=== PATIENT | female | born 1940 | race Caucasian/White ===

== ENCOUNTER 2016-07-01 13:33 | Inpatient (IN) | payer MEDICARE, BC ==
[2016-07-01 15:10] VITALS: BMI 14.8
--- NOTE | 2016-07-01 15:51 | CT ---
EXAMINATION TYPE: CT brain wo con DATE OF EXAM: 07/01/2016 3:44 PM HISTORY: Increased confusion. CT DLP: 1058.4 mGycm. Automated Exposure Control for Dose Reduction was Utilized. TECHNIQUE: CT scan of the head is performed without contrast. COMPARISON: None. FINDINGS: There is no acute intracranial hemorrhage or midline shift identified. There is diffuse v entricular and sulcal prominence consistent with diffuse age-related cerebral atrophy. There is low- attenuation in the periventricular white matter consistent with chronic small vessel ischemic change. Old lacunar infarct left basal ganglia suspected near axial image 25. The globes are intact and the visualized sinuses are clear. Patchy soft tissue density bilateral external auditory canals likely reflects cerumen. IMPRESSION: No acute intracranial hemorrhage or midline shift. There is moderate diffuse age-relate d cerebral atrophy and chronic small vessel ischemic change noted.
[2016-07-01 15:52] LABS: Anisocytosis Slight; Basophils % (A) 0 %; CH 30.9; CHCM 31.2; Eosinophils % (A) 1 %; HCT 43.5 % (34.0-46.0); HDW 3.12; HGB 13.3 gm/dL (11.4-16.0); Hypochromasia Moderate; Luc # (Auto) 0.04; Luc % (Auto) 1; Lymphocytes # (A) 0.4 k/uL (1.0-4.8); Lymphocytes % (A) 9 %; MCH 30.5 pg (25.0-35.0); MCHC 30.6 g/dL (31.0-37.0); Macrocytosis Slight; Mean Platelet Volume 8.2; Monocytes # (A) 0.1 k/uL (0-1.0); Monocytes % (A) 3 %; Neutrophils # (A) 3.6 k/uL (1.3-7.7); Neutrophils % (A) 86 %; RBC 4.35 m/uL (3.80-5.40); RDW 16.7 % (11.5-15.5); WBC 4.2 k/uL (3.8-10.6)
--- NOTE | 2016-07-01 16:01 | XR ---
EXAMINATION TYPE: XR chest 2V DATE OF EXAM: 07/01/2016 3:57 PM COMPARISON: NONE HISTORY: Shortness of breath and cough TECHNIQUE: Frontal and lateral views of the chest are obtained. FINDINGS: There is elevated left hemidiaphragm with left basilar opacity silhouetting portions of le ft heart border and hemidiaphragm worrisome for infiltrate and/or atelectasis. Right lung is clear. N o pneumothorax is seen bilaterally. No large pleural effusions are identified. The cardiac silhouette size is enlarged with atherosclerotic thoracic aorta. The osseous structures are demineralized. IMPRESSION: Cardiomegaly with suspicious left basilar infiltrate.
[2016-07-01] MEDS: SODIUM CHLORIDE 0.9% 1,000 ML IV SCH (16:03)
[2016-07-01 16:10] LABS: Calcium 9.3 mg/dL (8.4-10.2); Potassium 5.1 mmol/L (3.5-5.1); Total Bilirubin 1.2 mg/dL (0.2-1.3); Total Protein 6.1 g/dL (6.3-8.2)
[2016-07-01 16:28] LABS: Appearance,Urine Clear (Clear); Bilirubin,Urine Negative (Negative); Glucose,Urine (UA) 4+ (Negative); Ketones,Urine Negative (Negative); Leukocyte Esterase,Urine Negative (Negative); Mucus,Urine Rare /hpf; Nitrite,Urine Negative (Negative); PH, Urine 5.5 (5.0-8.0); Particle Count 568; Protein,Urine 2+ (Negative); RBC,Urine 2 /hpf (0-5); Specific Gravity,Urine 1.006 (1.001-1.035); Squamous Epithelial Cell,Urine 2 /hpf (0-4); UA Billing (MACRO vs. MICRO) MICRO; Urobilinogen,Urine <2.0 mg/dL (<2.0); WBC,Urine 3 /hpf (0-5)
[2016-07-01] MEDS: CARVEDILOL 6.25 MG TAB PO SCH (17:45)
[2016-07-01] MEDS: INSULIN LISPRO (humaLOG) 300 UNIT/3 ML VIAL SQ SCH ×2 (17:45→21:54)
[2016-07-01 17:50] LABS: Glucose,Whole Blood 536 mg/dL (75-99)
[2016-07-01 17:50] LABS: Glucose,Whole Blood >600 mg/dL (75-99)
[2016-07-01 18:46] LABS: Hemoglobin A1C 9.8 % (4.2-6.1)
[2016-07-01 21:12] LABS: Glucose,Whole Blood 379 mg/dL (75-99)
[2016-07-01] MEDS: GABAPENTIN 100 MG CAP PO SCH (21:32)
[2016-07-01] MEDS: MIRTAZAPINE 15 MG TAB PO SCH (21:32)
[2016-07-01] MEDS: FAMOTIDINE 20 MG TAB PO SCH (21:32)
[2016-07-01] MEDS: INSULIN DETEMIR 100 UNIT/ML 10 ML VIAL SQ SCH (21:56)
[2016-07-02] MEDS: LEVOTHYROXINE 25 MCG TAB PO SCH (06:45)
[2016-07-02] MEDS: SODIUM CHLORIDE 0.9% 1,000 ML IV SCH ×2 (06:47→14:50)
[2016-07-02 07:00] LABS: Glucose,Whole Blood 115 mg/dL (75-99)
--- NOTE | 2016-07-02 08:20 | HP ---
DATE OF ADMISSION: DATE OF SERVICE: 07/01/2016 CHIEF COMPLAINT: A 75-year-old white female admitted for acute altered mental status and pneumonia, cough, congestion, shortness of breath and altered mental status and possibly UTI, worsening renal insufficiency. HISTORY OF PRESENT ILLNESS: This is a 75-year-old white female who came to the hospital for severely elevated hyperglycemia with altered mental status, admitted to rule out TIA or CVA. She was found to have pneumonia and started on IV antibiotics, Rocephin, awaiting Infectious Disease and Neurologic consult. She has worsening renal insufficiency and diabetes mellitus. I started her on Levemir 10 units subQ insulin today on admission. HOME MEDICATIONS: 1. Prednisone 10 mg a day for chronic dermatitis. 2. Potassium chloride 10 mEq daily. 3. Remeron 30 daily. 4. Zestril 2.5 daily. 5. Synthroid 25 daily. 6. Neurontin 100 b.i.d. 7. Lasix 40 daily. 8. Pepcid 20 daily. 9. Coreg 6.25 b.i.d. REVIEW OF SYSTEMS: A 14-point review of systems negative except for as mentioned in HPI. Temperature is 97, pulse is 60s to 70s, respiration 16 to 19, blood pressure 99 to 126/60s to 70s. 02 is 94% to 99% on room air. CARDIOVASCULAR: S1, S2. LUNGS: ( ) HEMATOLOGIC: Negative Homans. PSYCH: Fair mood and affect. NEUROLOGIC: Alert and oriented x2. She looks weak and fatigued. She is thin and cachectic, a low BMI. Mild dermatitis with pustules on the right is clear. Brain CT shows no ischemic changes. Chest x-ray shows suspicious left basilar infiltrate, which is being treated for the pneumonia with Rocephin. Labs show a BUN of 51, creatinine 1.3, glucose of 559, she has been placed on Accu-Cheks protocol. Hemoglobin A1c is 9.8, Levemir has been given 10 units, today's glucose this morning is 115. CARDIOVASCULAR: S1, S2. LUNGS: Show scattered wheeze x4. ENDOCRINE: She is thin and cachectic. ASSESSMENT: 1. Generalized debility. 2. Right middle lobe pneumonia. 3. Hyperglycemia, uncontrolled diabetes mellitus. 4. Gastroesophageal reflux disease. 5. Chronic renal insufficiency. 6. Metabolic encephalopathy. 7. Possible urinary tract infection with sepsis. 8. Also Neurology and Infectious Disease consults are pending.
[2016-07-02] MEDS: INSULIN LISPRO (humaLOG) 300 UNIT/3 ML VIAL SQ SCH ×4 (08:30→21:39)
[2016-07-02] MEDS: CARVEDILOL 6.25 MG TAB PO SCH ×2 (08:30→18:06)
[2016-07-02] MEDS: LISINOPRIL 2.5 MG TAB PO SCH (08:31)
[2016-07-02] MEDS: POTASSIUM CHLORIDE ER 10 MEQ TAB.ER.PRT PO SCH (08:31)
[2016-07-02] MEDS: predniSONE 10 MG TAB PO SCH (08:31)
[2016-07-02] MEDS: FUROSEMIDE 40 MG TAB PO SCH (08:31)
[2016-07-02] MEDS: GABAPENTIN 100 MG CAP PO SCH ×2 (08:31→21:38)
[2016-07-02 09:39] LABS: Anisocytosis Slight; CH 31.1; CHCM 32.4; HDW 3.33; HGB 13.8 gm/dL (11.4-16.0); Hypochromasia Slight; MCH 31.7 pg (25.0-35.0); MCHC 32.7 g/dL (31.0-37.0); Macrocytosis Slight; Mean Platelet Volume 8.4; RBC 4.34 m/uL (3.80-5.40); WBC 7.2 k/uL (3.8-10.6); WBC (Perox) 7.35
[2016-07-02 09:55] LABS: ALT 33 U/L (9-52); AST 35 U/L (14-36); Alkaline Phosphatase 79 U/L (38-126); Anion Gap 10 mmol/L; Blood Urea Nitrogen 43 mg/dL (7-17); Calcium 8.8 mg/dL (8.4-10.2); Carbon Dioxide 21 mmol/L (22-30); Chloride 105 mmol/L (98-107); Glucose 116 mg/dL (74-99); Non-African American GFR(MDRD) 50 (>60 ml/min/1.73 sqM); Potassium 4.8 mmol/L (3.5-5.1); Sodium 136 mmol/L (137-145); Total Bilirubin 0.7 mg/dL (0.2-1.3); Total Protein 6.1 g/dL (6.3-8.2)
[2016-07-02 10:50] LABS: Add Differential Manual Differential
[2016-07-02 10:52] LABS: Nucleated Red Blood Cells 0 /100 WBC (0-0)
--- NOTE | 2016-07-02 10:52 | CDI ---
In responding to this query, please exercise your independent professional judgment. The [facility] Coding Staff and Clinical Documentation Specialists appreciate your assistance in clarifying documentation, maintaining compliance with coding guidelines, accurately documenting patients condition and capturing severity of illness. The fact that a question is asked does not imply that any particular answer is desired or expected. Communication forms are a method of clarifying documentation and are not made part of the Legal Health Record. Thank you in advance for your clarification. Last Revision, December 2014 Rl Ervin [address] [facility] [place] [address] Documentation Clarification Form Date: 07/02/2016 10:40:00 AM From: Teena Buchanan RN, CDS Admit Date: 07/01/2016 2:50:00 PM Patient Name: Shavonne Elliott Visit Number: [id number] Dr. Rodo Dumont, History/Risk Factors : 75 y/o admitted with general debility, Altered mental status and Pneumonia. Possible UTI History of Chronic renal insufficiency. Current BUN/CR/GFR: 51/1.30/40 and 43/1.07/50 Clinical Indicators : BUN/CR/GFR: 51/1.30/40 and 43/1.07/50, "worsening renal insufficiency" per H&P Treatment: NS@75, monitor labs, In order to capture the severity of condition, please clarify if the condition signifies: CKD Stage 1 (GFR > 90) CKD Stage 2 (GFR 60-89) CKD Stage 3 (GFR 30-59) CKD Stage 4 (GFR 15-29) CKD Stage 5 (GFR <15) ESRD Unable to determine Other condition, please specify Please document in your progress notes and discharge summary in order to capture severity of illness and risk of mortality. Include clinical findings that support your diagnosis. FYI: Press F11 to launch patient chart. Place X here if this finding has no clinical significance, is not applicable or if you are not able to provide any additional documentation. JUAN DAVIDD
[2016-07-02 10:54] LABS: Total Cells Counted 200
[2016-07-02 10:55] LABS: Polychromasia Present
[2016-07-02 12:19] LABS: Glucose,Whole Blood 140 mg/dL (75-99)
--- NOTE | 2016-07-02 12:20 | P.PN ---
Subjective Principal diagnosis: 75-year-old female seen and examined. 75-year-old female seen and examined. Patient was a direct admit from Dr. Jones's office the day before after patient is being seen in the office for mental status changes increased confusion different from baseline on admission the blood sugar was greater than 600 which was treated blood sugars were monitored throughout the night current blood sugar this morning 115 Levemir 10 units have been initiated CAT scan of the brain obtained on admission showed no acute intracranial hemorrhage. Moderate diffuse age-related cerebral atrophy and chronic small vessel ischemic changes noted chest x-ray suspicious for left basilar infiltrate Objective - Vital Signs Vital signs: Vital Signs Temp 96.5 F L 07/02/16 07:00 Pulse 69 07/02/16 07:00 Resp 18 07/02/16 07:00 BP 139/88 07/02/16 08:30 Pulse Ox 99 07/02/16 07:00 Intake & Output 07/01/16 07/02/16 07/02/16 18:59 06:59 18:59 Weight 38 kg Other: Voiding Method Diaper Incontinent # Voids 1 # Bowel Movements 0 - Exam Physical exam 75-year-old female pleasant cooperative oriented to self and place will follow simple commands Lungs essentially clear adequate air movement on room air sats are greater than 94% Heart S1-S2 audible and regular Abdomen soft nontender no nausea no vomiting not distended Extremities no edema moves all extremities appropriately - Labs CBC & Chem 7: 07/02/16 09:08 07/02/16 09:08 Labs: Abnormal Lab Results - Last 24 Hours (Table) 07/01/16 07/01/16 07/01/16 Range/Units 15:22 15:22 15:22 MCHC 30.6 L (31.0-37.0) g/dL RDW 16.7 H (11.5-15.5) % Plt Count 145 L (150-450) k/uL Lymphocytes # 0.4 L (1.0-4.8) k/uL Sodium 131 L (137-145) mmol/L Carbon Dioxide 21 L (22-30) mmol/L BUN 51 H (7-17) mg/dL Creatinine 1.30 H (0.52-1.04) mg/dL Glucose 559 H* (74-99) mg/dL POC Glucose (mg/dL) (75-99) mg/dL Hemoglobin A1c 9.8 H (4.2-6.1) % Total Protein 6.1 L (6.3-8.2) g/dL Albumin (3.5-5.0) g/dL Urine Protein (Negative) Urine Glucose (UA) (Negative) Hyaline Casts (0-2) /lpf Urine Mucus (None) /hpf 07/01/16 07/01/16 07/01/16 Range/Units 16:01 17:40 17:42 MCHC (31.0-37.0) g/dL RDW (11.5-15.5) % Plt Count (150-450) k/uL Lymphocytes # (1.0-4.8) k/uL Sodium (137-145) mmol/L Carbon Dioxide (22-30) mmol/L BUN (7-17) mg/dL Creatinine (0.52-1.04) mg/dL Glucose (74-99) mg/dL POC Glucose (mg/dL) >600 H 536 H (75-99) mg/dL Hemoglobin A1c (4.2-6.1) % Total Protein (6.3-8.2) g/dL Albumin (3.5-5.0) g/dL Urine Protein 2+ H (Negative) Urine Glucose (UA) 4+ H (Negative) Hyaline Casts 10 H (0-2) /lpf Urine Mucus Rare H (None) /hpf 07/01/16 07/02/16 07/02/16 Range/Units 21:10 06:40 09:08 MCHC (31.0-37.0) g/dL RDW 17.0 H (11.5-15.5) % Plt Count (150-450) k/uL Lymphocytes # (1.0-4.8) k/uL Sodium (137-145) mmol/L Carbon Dioxide (22-30) mmol/L BUN (7-17) mg/dL Creatinine (0.52-1.04) mg/dL Glucose (74-99) mg/dL POC Glucose (mg/dL) 379 H 115 H (75-99) mg/dL Hemoglobin A1c (4.2-6.1) % Total Protein (6.3-8.2) g/dL Albumin (3.5-5.0) g/dL Urine Protein (Negative) Urine Glucose (UA) (Negative) Hyaline Casts (0-2) /lpf Urine Mucus (None) /hpf 07/02/16 Range/Units 09:08 MCHC (31.0-37.0) g/dL RDW (11.5-15.5) % Plt Count (150-450) k/uL Lymphocytes # (1.0-4.8) k/uL Sodium 136 L (137-145) mmol/L Carbon Dioxide 21 L (22-30) mmol/L BUN 43 H (7-17) mg/dL Creatinine 1.07 H (0.52-1.04) mg/dL Glucose 116 H (74-99) mg/dL POC Glucose (mg/dL) (75-99) mg/dL Hemoglobin A1c (4.2-6.1) % Total Protein 6.1 L (6.3-8.2) g/dL Albumin 3.2 L (3.5-5.0) g/dL Urine Protein (Negative) Urine Glucose (UA) (Negative) Hyaline Casts (0-2) /lpf Urine Mucus (None) /hpf Microbiology - Last 24 Hours (Table) 07/01/16 16:01 Urine Culture - Preliminary Urine,Voided Assessment and Plan Plan: Impression Present on admission acute metabolic encephalopathy multifactorial suspect due to hyperglycemia with chest x-ray suggesting left lobe pneumonia Acute renal failure Chronic kidney disease stage 3 General debility chronic Hypertension Hypothyroid on supplements Type 2 diabetes uncontrolled hemoglobin A1c 9.5 newly diagnosed on no hypo- glycemic agents at home Hyperglycemic episodes Present on admission blood sugar greater than 600 Plan Continue IV Rocephin with Levaquin PT OT eval Monitor blood sugars address as indicated resume home meds as appropriate DVT and GI prophylaxis Follow-up on pending urine culture further recommendations pending The above dictated assessment and findings were discussed with dr jones Impression and the plan of care have been dictated as directed. Lorena George nurse practitioner acting as a scribe for dr jones.
[2016-07-02] MEDS ORDERED: LEVOFLOXACIN 500MG-D5W PMX 500 MG in DEXTROSE/WATER 1 100ML.BAG IVPB SCH (13:00)
--- NOTE | 2016-07-02 16:21 | P.CNNES ---
History of Present Illness Consult date: 07/02/16 Requesting physician: Rodo Dumont Reason for Consult: Altered mental status History of Present Illness: Patient is a pleasant 75-year-old female who is being seen by the neurology service on 07/02/2016 per the request of Dr. Rodo Dumont for altered mental status. Patient was a direct admit from Dr. Dumont's office for increased confusion. Upon admission, patient was found to have blood sugar of 559. Computed tomography scan of the brain showed no intracranial hemorrhage but it did show moderate diffuse age-related cerebral atrophy and chronic small vessel ischemic changes. Labs on admission included WBCs of 4.2, RBC 4.3, hemoglobin 13.3, hematocrit 43.5. Platelet count was 145, BUN was 51, creatinine 1.3, sodium 131, potassium 5.1. Hemoglobin A1c was 9.8. Urinalysis showed urine protein of 2+ and urine glucose 4+. Patient was afebrile with blood pressure 104/58. Patient was started on antibiotics and confusion is clearing according to staff. At the time of my evaluation, patient is resting comfortably in bed and appears to be in no acute distress. Review of Systems REVIEW OF SYSTEMS: Otherwise unremarkable and noncontributory. Past Medical History Past Medical History: Heart Failure, Diabetes Mellitus, Hyperlipidemia, Hypertension History of Any Multi-Drug Resistant Organisms: None Reported Past Surgical History: Appendectomy, Cholecystectomy Past Anesthesia/Blood Transfusion Reactions: No Reported Reaction Past Psychological History: Anxiety, Bipolar, Depression Smoking Status: Never smoker Medications and Allergies Home Medications Medication Instructions Recorded Confirmed Type Carvedilol [Coreg] 6.25 mg PO BID 07/01/16 07/01/16 History Famotidine [Pepcid] 20 mg PO DAILY 07/01/16 07/01/16 History Furosemide [Lasix] 40 mg PO DAILY 07/01/16 07/01/16 History Gabapentin [Neurontin] 100 mg PO BID 07/01/16 07/01/16 History Levothyroxine Sodium [Synthroid] 25 mcg PO DAILY 07/01/16 07/01/16 History Lisinopril [Zestril] 2.5 mg PO DAILY 07/01/16 07/01/16 History Mirtazapine [Remeron] 30 mg PO HS 05/18/17 05/18/17 History Potassium Chloride ER [K-Dur 10] 10 meq PO DAILY 07/01/16 07/01/16 History predniSONE 10 mg PO DAILY 07/01/16 07/01/16 History Allergies Allergy/AdvReac Type Severity Reaction Status Date / Time No Known Allergies Allergy Verified 07/01/16 15:35 Physical Examination - Vital Signs Vital Signs: Vital Signs Temp Pulse Resp BP Pulse Ox 07/02/16 15:00 98.2 F 75 20 141/66 97 07/02/16 08:30 139/88 07/02/16 07:00 96.5 F L 69 18 99/63 99 07/01/16 23:00 97.2 F L 75 16 104/58 98 Intake and Output 07/02/16 07/02/16 07/02/16 06:59 14:59 22:59 Intake Total 740 Balance 740 Intake: IV 100 Levofloxacin 500Mg-D5w 100 Pmx 500 mg In Dextrose/ Water 1 100ml.bag @ 100 mls/hr IVPB Q24H RUDDY Rx#: [id number] Intake, IV Titration 400 Amount Sodium Chloride 0.9% 1, 400 000 ml @ 50 mls/hr IV . Q20H RUDDY Rx#:[id number] Oral 240 Other: # Voids 1 3 # Bowel Movements 0 Weight 38 kg Patient Weight 07/03/16 06:59 Weight 38 kg PHYSICAL EXAM: GENERAL APPEARANCE: Patient is a well-developed, female who appears to be in no acute distress. HEENT: Normocephalic, atraumatic, no facial asymmetry is seen. Neck is supple with no masses felt. CARDIOVASCULAR: Regular rate and rhythm. ABDOMEN: Nontender, nondistended. EXTREMITIES: Show no edema or clubbing. NEUROLOGICAL EXAM: Patient is awake, alert, and oriented 2. Patient is unaware of what year it is. Even though patient states she is at [facility] she had asked me to go into the kitchen and get her candy bar. Strength is full in all 4 extremities. Sensory exam to light touch is normal in all 4 extremities. 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 No tremors or seizure-like activity noted. No lateralizing weakness. Results - Laboratory Findings CBC and BMP: 07/02/16 09:08 07/02/16 09:08 Abnormal Lab Findings: Abnormal Labs 07/01/16 07/01/16 07/01/16 15:22 15:22 15:22 MCHC 30.6 L RDW 16.7 H Plt Count 145 L Lymphocytes # 0.4 L Sodium 131 L Carbon Dioxide 21 L BUN 51 H Creatinine 1.30 H Glucose 559 H* POC Glucose (mg/dL) Hemoglobin A1c 9.8 H Total Protein 6.1 L Albumin Urine Protein Urine Glucose (UA) Hyaline Casts Urine Mucus 07/01/16 07/01/16 07/01/16 16:01 17:40 17:42 MCHC RDW Plt Count Lymphocytes # Sodium Carbon Dioxide BUN Creatinine Glucose POC Glucose (mg/dL) >600 H 536 H Hemoglobin A1c Total Protein Albumin Urine Protein 2+ H Urine Glucose (UA) 4+ H Hyaline Casts 10 H Urine Mucus Rare H 07/01/16 07/02/16 07/02/16 21:10 06:40 09:08 MCHC RDW 17.0 H Plt Count Lymphocytes # Sodium Carbon Dioxide BUN Creatinine Glucose POC Glucose (mg/dL) 379 H 115 H Hemoglobin A1c Total Protein Albumin Urine Protein Urine Glucose (UA) Hyaline Casts Urine Mucus 07/02/16 07/02/16 09:08 11:50 MCHC RDW Plt Count Lymphocytes # Sodium 136 L Carbon Dioxide 21 L BUN 43 H Creatinine 1.07 H Glucose 116 H POC Glucose (mg/dL) 140 H Hemoglobin A1c Total Protein 6.1 L Albumin 3.2 L Urine Protein Urine Glucose (UA) Hyaline Casts Urine Mucus Assessment and Plan Plan: Impression: 1. Altered mental status 2. Acute metabolic encephalopathy 3. Uncontrolled diabetes mellitus 4. Urinary tract infection 5. Acute on chronic renal failure Recommendations: Patient's current confusion is likely due to hyperglycemia, possible left lobe pneumonia, and urinary tract infection. As you recall, CT of the brain was negative for any acute process. Patient also has acute on chronic renal failure. Continue antibiotics and medical management. I will order an EEG. Continue neurological checks. I will continue to follow with you. Further recommendations to follow. Thank you for allowing me to participate in the care of your patient. If you have any questions, please feel free to contact me. I performed an examination of the patient and discussed the management with the SUPERVISOR [employer]LECTRODES. I have reviewed the SUPERVISOR [employer] notes and agree with the findings and plan of care.
--- NOTE | 2016-07-02 16:37 | CONS ---
DATE OF CONSULTATION: 07/02/2016 REASON FOR CONSULTATION: Possible pneumonia. HISTORY OF PRESENT ILLNESS: The patient is a 75-year-old female who was admitted directly to the hospital by Dr. Dumont from the office with mental status changes. Patient was also noted to have significantly elevated blood sugar. Patient says she has been feeling weak and sick for the last few days. Patient denies significant URI symptoms. The patient denies significant chest pain. Mild cough, not bringing up any sputum. Denies any abdominal pain. No nausea or vomiting. No diarrhea. No significant burning or frequency of urine. Patient subsequently has been evaluated. She did have CT of the brain that was negative for any bleed. Chest x-ray was suspicious for a left lower lobe infiltrate, suspicious for possible pneumonia distress. Patient was started on Rocephin, azithromycin and admitted to hospital. I was asked to see the patient for further recommendation regarding antibiotic therapy. Patient did mention that she is feeling better compared to yesterday. Appetite has improved as well. REVIEW OF SYSTEMS: CONSTITUTIONAL: Positive for weakness. Denies any high-grade fever. ENT: No complaint. ENT: No complaint. RESPIRATORY: As per HPI. CARDIOVASCULAR: No complaint. GENITOURINARY: No complaint. GASTROINTESTINAL: No complaint. MUSCULOSKELETAL: No complaint. INTEGUMENTARY: No complaint. PSYCHOLOGICAL: No complaint. ENDOCRINE: No complaint. NEUROLOGIC: No complaint. Past medical history is significant for: 1. Hypertension. 2. Hypothyroidism. 3. Newly diagnosed diabetes mellitus. 4. Chronic renal insufficiency. PAST SURGICAL HISTORY: No major surgery. SOCIAL HISTORY: Denies smoking, drinking or any drug use. FAMILY HISTORY: No pertinent findings were noticed. ALLERGIES: NO KNOWN DRUG ALLERGIES. Medications currently include: 1. Coreg. 2. Rocephin. 3. Pepcid. 4. Lasix. 5. Neurontin. 6. Heparin. 7. Levemir. 8. Humalog. 9. Levofloxacin. 10. Synthroid. 11. Zestril. 12. Remeron. 13. Prednisone. On examination, blood pressure is 141/66 with a pulse of 75, temperature 98.2. She is 97% on room air. General description is an elderly female up in the bed in no distress. No tachypnea of accessory muscle of respiration use. HEENT examination shows no pallor or scleral icterus. Oral mucous membranes dry. NECK: Trachea is central. No thyromegaly. LUNGS: Unlabored breathing with decreased breath sounds at the base. No wheeze. HEART: S1, S2. Regular rate and rhythm. ABDOMEN: Soft. No tenderness. EXTREMITIES: No edema of the feet. SKIN EXAMINATION: No rash or mass palpable. Neurologically the patient is awake, alert, oriented x3. Mood and affect normal. LABS: Hemoglobin is 13.8, white count 7.2. BUN of 43, creatinine is 1.07. Electrolytes have been normal. Liver enzymes are normal. Urine is not significantly positive. Chest x-ray report as mentioned above. DIAGNOSTIC IMPRESSION AND PLAN: Patient admitted to hospital with mental status changes. She did have some mild cough with a left lower lobe infiltrate; underlying pneumonia, community-acquired, could not be entirely excluded, as the patient has no other clinical focus of infection. Her urine is not significantly positive. abdomen soft on clinical examination and no evidence of any cellulitis. PLAN: 1. Will try to obtain sputum for Gram stain and culture and sensitivity. 2. Patient to continue on Rocephin and Levaquin. That should provide adequate coverage for underlying pneumonia if community-acquired in origin. 3. We will follow up on the clinical condition and cultures to further adjust medication if needed. Thank you for this consultation. Will follow this patient along with you. PATRICIA
[2016-07-02 17:14] LABS: Glucose,Whole Blood 313 mg/dL (75-99)
[2016-07-02] MEDS: HEPARIN SODIUM,PORCINE 5,000 UNIT/ML 1 ML VIAL SQ SCH ×2 (18:10→23:50)
[2016-07-02 21:05] LABS: Glucose,Whole Blood 226 mg/dL (75-99)
[2016-07-02] MEDS: MIRTAZAPINE 15 MG TAB PO SCH (21:38)
[2016-07-02] MEDS: FAMOTIDINE 20 MG TAB PO SCH (21:38)
[2016-07-02] MEDS: INSULIN DETEMIR 100 UNIT/ML 10 ML VIAL SQ SCH (21:38)
[2016-07-03] MEDS: LEVOTHYROXINE 25 MCG TAB PO SCH (06:46)
[2016-07-03 06:57] LABS: Glucose,Whole Blood 81 mg/dL (75-99)
[2016-07-03] MEDS: INSULIN LISPRO (humaLOG) 300 UNIT/3 ML VIAL SQ SCH ×4 (08:28→22:01)
[2016-07-03] MEDS: GABAPENTIN 100 MG CAP PO SCH ×2 (08:33→20:12)
[2016-07-03] MEDS: predniSONE 10 MG TAB PO SCH (08:33)
[2016-07-03] MEDS: LISINOPRIL 2.5 MG TAB PO SCH (08:33)
[2016-07-03] MEDS: HEPARIN SODIUM,PORCINE 5,000 UNIT/ML 1 ML VIAL SQ SCH ×3 (08:33→23:32)
[2016-07-03] MEDS: CARVEDILOL 6.25 MG TAB PO SCH ×2 (08:33→16:05)
[2016-07-03] MEDS: FUROSEMIDE 40 MG TAB PO SCH (08:33)
[2016-07-03] MEDS: POTASSIUM CHLORIDE ER 10 MEQ TAB.ER.PRT PO SCH (08:33)
[2016-07-03] MEDS: SODIUM CHLORIDE 0.9% 1,000 ML IV SCH (08:34)
[2016-07-03 10:15] LABS: ALT 28 U/L (9-52); AST 30 U/L (14-36); Alkaline Phosphatase 73 U/L (38-126); Anion Gap 7 mmol/L; Blood Urea Nitrogen 35 mg/dL (7-17); Calcium 8.4 mg/dL (8.4-10.2); Carbon Dioxide 25 mmol/L (22-30); Chloride 105 mmol/L (98-107); Glucose 181 mg/dL (74-99); Non-African American GFR(MDRD) >60 (>60 ml/min/1.73 sqM); Potassium 4.3 mmol/L (3.5-5.1); Sodium 137 mmol/L (137-145); Total Bilirubin 0.6 mg/dL (0.2-1.3); Total Protein 5.6 g/dL (6.3-8.2)
--- NOTE | 2016-07-03 11:29 | P.PN ---
Subjective Principal diagnosis: Patient is a pleasant 75-year-old female who is being followed by the neurology service for altered mental status. Patient was directly admitted from Dr. Dumont's office for increased confusion. On admission, patient had elevated blood sugar 559. CT of the brain showed no intracranial hemorrhage but did show moderate diffuse age-related cerebral atrophy and chronic small vessel ischemic changes. At the time of my evaluation, patient's resting comfortably in bed and appears to be in no acute distress. Objective - Vital Signs Vital signs: Vital Signs Temp 97.3 F L 07/02/16 23:00 Pulse 74 07/03/16 07:00 Resp 18 07/03/16 07:00 BP 129/71 07/03/16 07:00 Pulse Ox 97 07/03/16 07:00 Intake & Output 07/02/16 07/03/16 07/03/16 18:59 06:59 18:59 Intake Total 740 240 Balance 740 240 Weight 38 kg Intake: IV 100 Levofloxacin 500Mg-D5w 100 Pmx 500 mg In Dextrose/ Water 1 100ml.bag @ 100 mls/hr IVPB Q24H RUDDY Rx#: [id number] Intake, IV Titration 400 Amount Sodium Chloride 0.9% 1, 400 000 ml @ 50 mls/hr IV . Q20H RUDDY Rx#:[id number] Oral 240 240 Other: # Voids 2 2 - Exam PHYSICAL EXAM: GENERAL APPEARANCE: Patient is a well-developed, female who appears to be in no acute distress. HEENT: Normocephalic, atraumatic, no facial asymmetry is seen. Neck is supple with no masses felt. CARDIOVASCULAR: Regular rate and rhythm. ABDOMEN: Nontender, nondistended. EXTREMITIES: Show no edema or clubbing. NEUROLOGICAL EXAM: Patient is awake, alert, and oriented 3. Speech and language are normal. Strength is full in all 4 extremities. Sensory exam to light touch is normal in all 4 extremities. 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 No tremors or seizure-like activity is noted. No lateralizing weakness. - Labs CBC & Chem 7: 07/02/16 09:08 07/03/16 09:03 Labs: Abnormal Lab Results - Last 24 Hours (Table) 05/19/17 05/19/17 05/19/17 Range/Units 11:50 16:47 20:56 BUN (7-17) mg/dL Glucose (74-99) mg/dL POC Glucose (mg/dL) 140 H 313 H 226 H (75-99) mg/dL Total Protein (6.3-8.2) g/dL Albumin (3.5-5.0) g/dL 07/03/16 Range/Units 09:03 BUN 35 H (7-17) mg/dL Glucose 181 H (74-99) mg/dL POC Glucose (mg/dL) (75-99) mg/dL Total Protein 5.6 L (6.3-8.2) g/dL Albumin 2.9 L (3.5-5.0) g/dL Assessment and Plan Plan: Impression: 1. Altered mental status 2. Acute metabolic encephalopathy 3. Uncontrolled diabetes mellitus 4. Urinary tract infection 5. Acute on chronic renal failure Recommendations: Patient's confusion is improving and is likely due to hyperglycemia, possible left lobe pneumonia, and urinary tract infection. Glucose is 181 today. As you recall, CT of the brain was negative for any acute process. Patient also has acute on chronic renal failure. Continue antibiotics and medical management. EEG was ordered and has not yet been performed. Continue neurological checks. Patient has multiple sores and scabs diffusely spread over her body. Patient continues to pick at these lesions. Patient does have significant psych history of bipolar, depression and anxiety. A psych consult may be beneficial. Barring any pathology on the EEG, I will continue to follow with you on an as-needed basis. Feel free to call with any questions or concerns. I performed an examination of the patient and discussed the management with the LUBE TECHNICIAN. I have reviewed the LUBE TECHNICIAN notes and agree with the findings and plan of care.
[2016-07-03 12:49] LABS: Glucose,Whole Blood 160 mg/dL (75-99)
[2016-07-03] MEDS ORDERED: LEVOFLOXACIN 250MG-D5W PMX 250 MG in DEXTROSE/WATER 1 50ML.BAG IVPB SCH (13:00)
[2016-07-03] MEDS: LEVOFLOXACIN 250 MG TAB PO SCH (13:44)
[2016-07-03 17:01] LABS: Glucose,Whole Blood 366 mg/dL (75-99)
[2016-07-03] MEDS: FAMOTIDINE 20 MG TAB PO SCH (20:12)
[2016-07-03] MEDS: MIRTAZAPINE 15 MG TAB PO SCH (20:12)
--- NOTE | 2016-07-03 20:56 | PN ---
SUBJECTIVE: 75-year-old white female admitted with pneumonia, urinary tract infection, dehydration and acute on chronic renal failure. Patient is improving. Appetite is improving. Glucoses has been reviewed with her. Hemoglobin A1c 9.8. Glucose mid 200s to 300s on 10 units Levemir. Now we will increase the Levemir to 15 units at night. CARDIOVASCULAR: S1, S2. LUNGS: Clear. GI: Soft. HEMATOLOGIC: Negative Homans. PSYCHIATRIC: Fair mood and affect. NEUROLOGIC: Alert and oriented x3. Ophthalmologic: Pupils equal, round, and reactive to light and accommodation. NEUROLOGIC: Alert and oriented x3. ASSESSMENT: 1. Insulin-dependent diabetes mellitus and increase Levemir to 15 units daily. 2. Urinary tract infection, pneumonia. 3. Gastroesophageal reflux disease. 4. Hypertension. 5. ( ) bipolar chronic dermatitis possibly low dose medication for bipolar will be needed. We will add it. To follow up in the next 24 to 48 hours and then on discharge home.
[2016-07-03 20:58] LABS: Glucose,Whole Blood 313 mg/dL (75-99)
[2016-07-03] MEDS: INSULIN DETEMIR 100 UNIT/ML 10 ML VIAL SQ SCH (22:01)
[2016-07-04] MEDS: SODIUM CHLORIDE 0.9% 1,000 ML IV SCH (05:29)
[2016-07-04] MEDS: LEVOTHYROXINE 25 MCG TAB PO SCH (06:56)
[2016-07-04 07:44] LABS: Glucose,Whole Blood 66 mg/dL (75-99)
[2016-07-04 07:44] LABS: Glucose,Whole Blood 121 mg/dL (75-99)
[2016-07-04] MEDS: INSULIN LISPRO (humaLOG) 300 UNIT/3 ML VIAL SQ SCH ×4 (07:56→21:01)
[2016-07-04] MEDS: POTASSIUM CHLORIDE ER 10 MEQ TAB.ER.PRT PO SCH (08:20)
[2016-07-04] MEDS: CARVEDILOL 6.25 MG TAB PO SCH ×2 (08:20→16:55)
[2016-07-04] MEDS: LISINOPRIL 2.5 MG TAB PO SCH (08:20)
[2016-07-04] MEDS: FUROSEMIDE 40 MG TAB PO SCH (08:20)
[2016-07-04] MEDS: GABAPENTIN 100 MG CAP PO SCH ×2 (08:20→20:47)
[2016-07-04] MEDS: predniSONE 10 MG TAB PO SCH (08:20)
[2016-07-04] MEDS: HEPARIN SODIUM,PORCINE 5,000 UNIT/ML 1 ML VIAL SQ SCH ×3 (08:20→22:35)
[2016-07-04 09:44] LABS: Anisocytosis Slight; Basophils % (A) 1 %; CH 30.8; CHCM 31.6; Eosinophils # (A) 0.1 k/uL (0-0.7); Eosinophils % (A) 3 %; HCT 39.6 % (34.0-46.0); HDW 3.34; HGB 12.3 gm/dL (11.4-16.0); Hypochromasia Moderate; Luc # (Auto) 0.06; Luc % (Auto) 2; Lymphocytes # (A) 0.6 k/uL (1.0-4.8); Lymphocytes % (A) 15 %; MCH 30.6 pg (25.0-35.0); MCHC 31.1 g/dL (31.0-37.0); MCV 98.3 fL (80.0-100.0); Macrocytosis Slight; Mean Platelet Volume 7.4; Monocytes # (A) 0.3 k/uL (0-1.0); Monocytes % (A) 8 %; Neutrophils % (A) 72 %; RBC 4.03 m/uL (3.80-5.40); RDW 16.3 % (11.5-15.5); WBC 4.2 k/uL (3.8-10.6); WBC (Perox) 4.54
[2016-07-04 10:00] LABS: ALT 28 U/L (9-52); AST 32 U/L (14-36); Alkaline Phosphatase 71 U/L (38-126); Anion Gap 8 mmol/L; Blood Urea Nitrogen 29 mg/dL (7-17); Calcium 8.6 mg/dL (8.4-10.2); Carbon Dioxide 26 mmol/L (22-30); Chloride 103 mmol/L (98-107); Glucose 144 mg/dL (74-99); Non-African American GFR(MDRD) >60 (>60 ml/min/1.73 sqM); Potassium 4.1 mmol/L (3.5-5.1); Sodium 137 mmol/L (137-145); Total Bilirubin 0.5 mg/dL (0.2-1.3); Total Protein 5.4 g/dL (6.3-8.2)
[2016-07-04 12:47] LABS: Glucose,Whole Blood 144 mg/dL (75-99)
[2016-07-04] MEDS: LEVOFLOXACIN 250 MG TAB PO SCH (13:21)
[2016-07-04 17:18] LABS: Glucose,Whole Blood 316 mg/dL (75-99)
--- NOTE | 2016-07-04 18:44 | PN ---
SUBJECTIVE: 75-year-old white female who has picking disease on extremities. Continues to pick at herself. Her skin and she is having insomnia at night. She has history of bipolar. We will think about adding low dose mood stabilizer at night as ( ) is not helping her sleep. UTI and pneumonia are improved. She feels generalized weakness but her sugars are improved with one dose of Levemir insulin 15 mg at night. White count is normal. Hemoglobin is normal. Sugars have been in the mid 100s. IMPRESSION: 1. She has a moderate protein calorie malnutrition. 2. Urinary tract infection. 3. Pneumonia. 4. Generalized debility. 5. Bipolar depression. Continue to add low dose Risperdal at night. Follow up in next 24 to 48 hours for discharge home.
[2016-07-04] MEDS: MIRTAZAPINE 15 MG TAB PO SCH (20:46)
[2016-07-04] MEDS: FAMOTIDINE 20 MG TAB PO SCH (20:47)
[2016-07-04] MEDS: AMOXIC-POT CLAV 875-125MG 1 EACH TAB PO SCH (20:51)
[2016-07-04] MEDS ORDERED: QUEtiapine 25 MG TAB PO SCH (21:00)
[2016-07-04] MEDS: INSULIN DETEMIR 100 UNIT/ML 10 ML VIAL SQ SCH (21:06)
[2016-07-04 21:26] LABS: Glucose,Whole Blood 323 mg/dL (75-99)
[2016-07-05] MEDS: SODIUM CHLORIDE 0.9% 1,000 ML IV SCH (03:30)
[2016-07-05] MEDS: LEVOTHYROXINE 25 MCG TAB PO SCH (06:51)
[2016-07-05 07:53] VITALS: BP 126/84; PULSE 90; RESP 18; TEMP 95.3
[2016-07-05 08:06] LABS: Glucose,Whole Blood 132 mg/dL (75-99)
[2016-07-05] MEDS: AMOXIC-POT CLAV 875-125MG 1 EACH TAB PO SCH (08:16)
[2016-07-05] MEDS: LISINOPRIL 2.5 MG TAB PO SCH (08:16)
[2016-07-05] MEDS: predniSONE 10 MG TAB PO SCH (08:16)
[2016-07-05] MEDS: GABAPENTIN 100 MG CAP PO SCH (08:17)
[2016-07-05] MEDS: POTASSIUM CHLORIDE ER 10 MEQ TAB.ER.PRT PO SCH (08:17)
[2016-07-05] MEDS: INSULIN LISPRO (humaLOG) 300 UNIT/3 ML VIAL SQ SCH ×2 (08:17→13:20)
[2016-07-05] MEDS: HEPARIN SODIUM,PORCINE 5,000 UNIT/ML 1 ML VIAL SQ SCH (08:17)
[2016-07-05] MEDS: FUROSEMIDE 40 MG TAB PO SCH (08:17)
[2016-07-05] MEDS: CARVEDILOL 6.25 MG TAB PO SCH (08:17)
--- NOTE | 2016-07-05 08:26 | PN ---
DATE OF SERVICE: 07/04/2016 Reason for followup is pneumonia and a question of urinary tract infection. INTERVAL HISTORY: The patient is afebrile. She is feeling better. Breathing comfortably. Denies significant chest pain. Occasional cough. No abdominal pain, no diarrhea. On examination, blood pressure is 121/67 with a pulse of 83, temperature 97.5, she is 98% on room air. General description is an elderly female up in the bed, in no distress. RESPIRATORY SYSTEM: Unlabored breathing. Some decreased breath sounds, baseline wheeze. HEART: S1, S2. Regular rate and rhythm. ABDOMEN: Soft, no tenderness. LABS: Hemoglobin is 12.3, white count of 4.2 and BUN of 29, creatinine 0.91. DIAGNOSTIC IMPRESSION AND PLAN: Patient with a question of possible pneumonia and urine and urinary tract infection with urine showing enterococcus and antibiotic adjusted to Augmentin which will continue for about 5 days to finish the course of therapy. Continue supportive care.
[2016-07-05 12:19] LABS: Glucose,Whole Blood 203 mg/dL (75-99)
--- NOTE | 2016-07-05 13:13 | P.DS ---
Providers Date of admission: 07/01/16 14:50 Expected date of discharge: 07/05/16 Attending physician: Rodo Jones Consults: 07/01/16 15:12 Consult Physician Urgent Consulting Provider: Vivienne Echeverria Consult Reason/Comments: Acute mental status changes Do you want consulting provider notified?: Yes 07/01/16 16:37 Consult Physician Routine Consulting Provider: Jeniffer Smart Consult Reason/Comments: uti/sepsis Do you want consulting provider notified?: Yes Primary care physician: [facility] Course: 75-year-old direct admit from Dr. Jones's office patient was being seen in the office for acute mental status changes different from baseline on admission the blood sugar was noted to be greater than 600 this was treated blood sugars were monitored closely addressed with the protocol. Additionally the patient's CAT scan of the brain obtained on admission showed no acute intracranial hemorrhage. Moderate diffuse age-related cerebral atrophy and chronic small vessel ischemic changes noted chest x-ray suspicious for left basilar infiltrate A neurology consultation was requested patient was seen by Dr. Echeverria. Patient was being treated for acute metabolic encephalopathy likely due to urinary tract infection. Patient was started on IV antibiotics monitored closely and on the day of discharge patient was felt to be hemodynamically stable and appropriate to proceed. lives at [facility] Impression discharge diagnosis Acute on chronic renal failure Present on admission acute metabolic encephalopathy suspect due to an acute urinary tract infection present on admission hypoglycemic episodes Present on admission blood sugar greater than 600 Type 2 diabetes uncontrolled hemoglobin A1c 9.5 newly diagnosed on no hypoglycemic agents at home hypothyroid on supplements General. debility chronic Baseline dementia with no behavior disturbance Chronic kidney disease stage III The above dictated assessment and findings were discussed with dr jones Impression and the plan of care have been dictated as directed. Lorena George nurse practitioner acting as a scribe for dr jones. Plan - Discharge Summary New Discharge Prescriptions: Amoxic-Pot Clav 875-125Mg [Augmentin 875-125] 1 each PO Q12HR #14 tab Insulin Detemir [Levemir] 15 unit SQ HS #1 vial QUEtiapine [SEROquel] 50 mg PO HS #30 tab QUEtiapine [SEROquel] 50 mg PO HS #30 tab Discharge Medication List Carvedilol [Coreg] 6.25 mg PO BID 07/01/16 [History] Famotidine [Pepcid] 20 mg PO DAILY 07/01/16 [History] Furosemide [Lasix] 40 mg PO DAILY 07/01/16 [History] Gabapentin [Neurontin] 100 mg PO BID 07/01/16 [History] Levothyroxine Sodium [Synthroid] 25 mcg PO DAILY 07/01/16 [History] Lisinopril [Zestril] 2.5 mg PO DAILY 07/01/16 [History] Mirtazapine [Remeron] 30 mg PO HS 07/01/16 [History] Potassium Chloride ER [K-Dur 10] 10 meq PO DAILY 07/01/16 [History] predniSONE 10 mg PO DAILY 07/01/16 [History] Amoxic-Pot Clav 875-125Mg [Augmentin 875-125] 1 each PO Q12HR #14 tab 07/05/16 [ Rx] Insulin Detemir [Levemir] 15 unit SQ HS #1 vial 07/05/16 [Rx] QUEtiapine [SEROquel] 50 mg PO HS #30 tab 07/05/16 [Rx] QUEtiapine [SEROquel] 50 mg PO HS #30 tab 07/05/16 [Rx] Follow up Appointment(s)/Referral(s): [facility], [NON-STAFF] - Rodo Jones MD [Primary Care Provider] - 07/07/16 Activity/Diet/Wound Care/Special Instructions: Patient lives at the [facility] in home care has been set up Discharge Disposition: HOME WITH HOME HEALTH SERVICES
--- NOTE | 2016-07-05 21:38 | PN ---
DATE OF SERVICE: 07/05/2016 REASON FOR FOLLOWUP: Pneumonia, possible UTI. INTERVAL HISTORY: The patient is afebrile. She is feeling better, breathing comfortably. Denies significant chest pain. No cough or abdominal pain or diarrhea. On examination, blood pressure 113/68 with a pulse of 82, temperature 96.6. She is 98% on room air. General description is a middle-aged female lying in bed in no distress. RESPIRATORY SYSTEM: Unlabored breathing. Clear to auscultation anteriorly. HEART: S1, S2. Regular rate and rhythm. ABDOMEN: Soft. No tenderness. LABS: No new labs have been obtained today. DIAGNOSTIC IMPRESSION AND PLAN: Patient admitted to hospital with question of possible left lobe pneumonia with urine showing enterococcus, currently on oral Augmentin. That should continue for another 7 days to finish the course of therapy. Continue supportive care.
--- NOTE | 2016-07-16 08:02 | EEG ---
DATE OF SERVICE: 07/03/2016 REASON FOR TESTING: Altered mental status. AGE: 75Y DESCRIPTION OF THE PROCEDURE: This EEG was performed using a 21-channel digital electroencephalograph, following the international 10 to 20 system. DESCRIPTION OF THE RECORDING: From the beginning of the tracing, and with the patient's eyes closed, the background rhythm was mostly consisting of 7 Hz theta frequency in the posterior occipital leads. No obvious asymmetry is seen. Photic stimulation was performed with no driving response seen. No pathological waves were elicited. Occasional movement and muscle artifacts are seen. Hyperventilation was not performed. The patient remains awake throughout the tracing. No epileptiform discharges were seen. Her EKG lead showed a regular rate and rhythm. INTERPRETATION: This awake EEG is abnormal due to the presence of generalized slowing of the background rhythm, mostly in the theta range. This is consistent with mild encephalopathy. No epileptiform discharges were seen. The absence of epileptiform discharges does not rule out the diagnosis of epilepsy, therefore, clinical correlation is recommended.
== END 2016-07-05 15:06 | disposition home health service (06) | DRG 193 ==
LOC: 4MS4W 14:50
PROVIDERS: ADMIT Family Medicine; ATTEND Family Medicine
DX: J18.9 Pneumonia, unspecified organism (principal); G93.41 Metabolic encephalopathy; N17.9 Acute kidney failure, unspecified; N39.0 Urinary tract infection, site not specified; E44.0 Moderate protein-calorie malnutrition; I13.0 Hypertensive heart and chronic kidney disease with heart failure and stage 1 through stage 4 chronic kidney disease, or unspecified chronic kidney disease; Z68.1 Body mass index [BMI] 19.9 or less, adult; F03.90 Unspecified dementia, unspecified severity, without behavioral disturbance, psychotic disturbance, mood disturbance, and anxiety; I50.9 Heart failure, unspecified; E03.9 Hypothyroidism, unspecified; E11.22 Type 2 diabetes mellitus with diabetic chronic kidney disease; E11.649 Type 2 diabetes mellitus with hypoglycemia without coma; E11.65 Type 2 diabetes mellitus with hyperglycemia; E78.5 Hyperlipidemia, unspecified; E86.0 Dehydration; F31.9 Bipolar disorder, unspecified; G47.00 Insomnia, unspecified; K21.9 Gastro-esophageal reflux disease without esophagitis; L30.9 Dermatitis, unspecified; N18.3 Chronic kidney disease, stage 3 (moderate); F41.9 Anxiety disorder, unspecified; R32 Unspecified urinary incontinence; Z79.52 Long term (current) use of systemic steroids; Z79.899 Other long term (current) drug therapy
CPT/HCPCS: 70450; 71020; 80053; 81001; 83036; 85025; 87077; 87086; 87186; 95819